=== PATIENT | female | born 1950 | race African-American/Black ===

== ENCOUNTER 2017-04-30 15:17 | Emergency (ER) | payer BC ==
[~2017-04-30] VITALS: Ht 154.9 cm; Wt 86.0 kg
[2017-04-30 21:29] VITALS: BP 140/55
== END 2017-04-30 20:00 | disposition left against medical advice (07) ==
LOC: ER 16:01
DX: Z53.21 Procedure and treatment not carried out due to patient leaving prior to being seen by health care provider (principal)
CPT/HCPCS: 82962